=== PATIENT | female | born 1965 | race Caucasian/White ===

== ENCOUNTER → 2021-10-23 | Outpatient (CLI) | payer BC ==
--- NOTE | 2021-11-09 13:48 | MM ---
Reason for exam: screening (asymptomatic). Last mammogram was performed 6 years and 6 months ago. History: Patient is postmenopausal. Family history of breast cancer in maternal grandmother at age 80 and breast cancer in maternal aunt at age 70. Benign ultrasound-guided core biopsy of the right breast, 2016. Reductions of both breasts, 1993. Took hormonal contraceptives beginning at age 19. Physical Findings: A clinical breast exam by your physician is recommended on an annual basis and results should be correlated with mammographic findings. MG 3D Screening Mammo W/Cad Bilateral CC and MLO view(s) were taken. Prior study comparison: April 17, 2015, mammogram, performed at [facility]. There are scattered fibroglandular densities. Focal asymmetry right upper outer quadrant, stable. No significant changes when compared with prior studies. ASSESSMENT: Benign, BI-RAD 2 RECOMMENDATION: Routine screening mammogram of both breasts in 1 year.
== END | disposition home or self-care (01) ==
LOC: RADMAMWWP 08:18
PROVIDERS: ATTEND Family Medicine
DX: Z12.31 Encounter for screening mammogram for malignant neoplasm of breast (principal); Z80.3 Family history of malignant neoplasm of breast; Z78.0 Asymptomatic menopausal state
CPT/HCPCS: 77063; 77067

== ENCOUNTER 2025-01-30 06:52 | Day surgery (SDC) | payer BC ==
[2024-12-17 17:34] VITALS: BMI 29.2
[~2025-01-30 06:52] MED LIST: DEXAMETHASONE SOD PHOSPHATE 4 MG/ML 1 ML VIAL IV ONE; HYDROmorphone 0.5 MG/0.5 ML SYRINGE IVP PRN; LACTATED RINGERS 1,000 ML IV SCH; ONDANSETRON 4 MG/2 ML VIAL IVP ONE
[2025-01-30] MEDS: LACTATED RINGERS 1,000 ML IV ONE (07:09)
[2025-01-30 07:18] VITALS: RESP 16; TEMP 97
[2025-01-30] MEDS ORDERED: LIDOCAINE 1% INJ 10MG/ML (20 ML MDV) ONE (07:29)
[2025-01-30] MEDS ORDERED: PROPOFOL 10 MG/ML 20 ML VIAL IV ONE (07:29)
--- NOTE | 2025-01-30 07:37 | P.GSHP ---
History of Present Illness H&P Date: 01/30/25 CHIEF COMPLAINT: Colon screen HISTORY OF PRESENT ILLNESS: The patient is a 60-year-old female who presents for colon screen. Lower endoscopy was offered for further evaluation and management. PAST MEDICAL HISTORY: Please see list. PAST SURGICAL HISTORY: Please see list. MEDICATIONS: Please see list. ALLERGIES: Please see list. SOCIAL HISTORY: No illicit drug use FAMILY HISTORY: No reports of Crohn disease or ulcerative colitis. REVIEW OF ORGAN SYSTEMS: CONSTITUTIONAL: No reports of fevers or chills. PHYSICAL EXAM: VITAL SIGNS: Stable GENERAL: Well-developed pleasant in no acute distress. HEENT: No scleral icterus. Extraocular movements grossly intact. Moist buccal mucosa. NECK: Supple without lymphadenopathy. CHEST: Unlabored respirations. Equal bilateral excursions. CARDIOVASCULAR: Regular rate and rhythm. Distal 2+ pulses. ABDOMEN: Soft, nontender, nondistended. MUSCULOSKELETAL: No clubbing, cyanosis, or edema. ASSESSMENT: 1. Colon screen. PLAN: 1. Recommend proceeding with a lower endoscopy Past Medical History Past Medical History: No Reported History History of Any Multi-Drug Resistant Organisms: None Reported Past Surgical History: Breast Surgery, Uterine Ablation Additional Past Surgical History / Comment(s): Bilat breast reduction. Nasal surgery r/t fx nose. Past Anesthesia/Blood Transfusion Reactions: No Reported Reaction Additional Past Anesthesia/Blood Transfusion Reaction / Comment(s): No hx of blood transfusion to date. Smoking Status: Never smoker - Past Family History Father Family Medical History: No Reported History Medications and Allergies Home Medications Medication Instructions Recorded Confirmed Type Fish Oil(Unknown Dose) 1 dose PO QAM 12/17/24 01/30/25 History Multivitamins, Thera [Multivitamin 1 tab PO QAM 12/17/24 01/30/25 History (formulary)] Turmeric Root Extract [Turmeric 500 mg PO QAM 12/17/24 01/30/25 History Curcumin] Vitamin D3(Unknown Dose) 1 dose PO QAM 12/17/24 01/30/25 History Allergies Allergy/AdvReac Type Severity Reaction Status Date / Time pineapple AdvReac Swelling-bumps Verified 01/30/25 07:07 in mouth tree nut AdvReac Swelling-bumps Verified 01/30/25 07:07 in mouth Surgical - Exam Vital Signs Temp Pulse Resp BP Pulse Ox 97.0 F L 75 16 127/64 96 01/30/25 07:17 01/30/25 07:17 01/30/25 07:17 01/30/25 07:17 01/30/25 07:17
--- NOTE | 2025-01-30 08:03 | P.PCN ---
Date of Procedure: 01/30/25 Description of Procedure: PREOPERATIVE DIAGNOSIS: Personal history of colon polyps POSTOPERATIVE DIAGNOSIS: Tubular adenoma hepatic flexure OPERATION: Colonoscopy to the ileocecal valve and appendiceal orifice, cecum Colonoscopy with cold forceps biopsy SURGEON: Nelly Staples MD. ANESTHESIA: MAC. INDICATIONS: The patient is an 60-year-old female who presents personal history of colon polyps. Last colonoscopy 5 years. Benefits and risks were described and informed consent was obtained. DESCRIPTION OF PROCEDURE: The patient had undergone Sutab prep. The patient had been brought into the operating room and laid in the left lateral decubitus position. After adequate intravenous sedation, the rectum was examined with 2% lidocaine jelly. The prostate was unremarkable. External hemorrhoids were encountered. The rectal tone was within normal limits. No lesions were palpated in the rectal vault. An Olympus colonoscope was advanced until the cecum, ileocecal valve and appendiceal orifice were clearly viewed. The prep was excellent. No large sigmoid diverticulosis was encountered. Colonic polyps were found and removed. No evidence of focal colitis was found. Retroflexion of the scope demonstrated grade 2 internal hemorrhoids without active bleeding or inflammation. The colon was desufflated. The patient had tolerated the procedure well. Withdrawal time was over 6 minutes. FINDINGS: Aronchick preparation quality scale 1 (1-5) Internal hemorrhoids, grade 1 External hemorrhoids, grade 1. No arteriovenous malformations. No large sigmoid diverticulosis Removal of 1 polyps: - Cold forceps biopsy at hepatic flexure, 4 mm adenoma No focal colitis. RECOMMENDATIONS: Repeat colonoscopy 5 years, 2029 Plan - Discharge Summary Discharge Rx Participant: No New Discharge Prescriptions: Continue Multivitamins, Thera [Multivitamin (formulary)] 1 tab PO QAM Vitamin D3(Unknown Dose) 1 dose PO QAM Turmeric Root Extract [Turmeric Curcumin] 500 mg PO QAM Fish Oil(Unknown Dose) 1 dose PO QAM Discharge Medication List Fish Oil(Unknown Dose) 1 dose PO QAM 12/17/24 [History] Multivitamins, Thera [Multivitamin (formulary)] 1 tab PO QAM 12/17/24 [History] Turmeric Root Extract [Turmeric Curcumin] 500 mg PO QAM 12/17/24 [History] Vitamin D3(Unknown Dose) 1 dose PO QAM 12/17/24 [History] Follow up Appointment(s)/Referral(s): Nelly Staples MD [STAFF PHYSICIAN] - As Needed Patient Instructions/Handouts: Colorectal Polyps (GEN) Activity/Diet/Wound Care/Special Instructions: Repeat colonoscopy 5 years, 2030 Discharge Disposition: HOME SELF-CARE
[2025-01-30 08:44] VITALS: BP 124/76; PULSE 60
== END 2025-01-30 09:18 | disposition home or self-care (01) ==
LOC: ORWHC2ENDO 06:52
PROVIDERS: ATTEND Surgery Plastic and Reconstructive Surgery
DX: Z12.11 Encounter for screening for malignant neoplasm of colon (principal); Z86.0100 Personal history of colon polyps, unspecified; D12.3 Benign neoplasm of transverse colon
CPT/HCPCS: 45380; J2003; J2704; 88305; 88341; 88342